=== PATIENT | female | born 1960 | race Caucasian/White ===

== ENCOUNTER 2016-09-09 16:48 | Observation (INO) | payer BC ==
[2016-09-09] MEDS ORDERED: LIBRAX PO PRN (17:20)
[2016-09-09] MEDS ORDERED: ZOFRAN INJ 4 MG VIAL 16 MG, ATIVAN INJ 2 MG VIAL 1 MG, DECADRON INJ 10 MG in NS 50 ML I... IV PRN (17:20)
[2016-09-09] MEDS ORDERED: NS 1000 ML 1,000 ML ONE (17:41)
[2016-09-09] MEDS: FLAGYL IV PREMIX 500 MG BAG 500 MG/100 ML BAG IV SCH ×2 (17:49→23:12)
[2016-09-09] MEDS: PROTONIX INJ 40 MG VIAL IVP SCH ×2 (17:49→20:21)
[2016-09-09] MEDS: NS 1000 ML 1,000 ML IV SCH (17:49)
[2016-09-09 17:53] LABS: BASOPHILS # (AUTO) 0.1 X10^3/uL (0.0-0.1); BASOPHILS % (AUTO) 1.3 % (0.2-1.0); EOSINOPHILS # (AUTO) 0.2 x10^3/uL (0.0-0.2); EOSINOPHILS % (AUTO) 2.6 % (0.9-2.9); HEMATOCRIT 41.2 % (36.0-47.0); LYMPHOCYTES # (AUTO) 3.5 X10^3/uL (1.3-2.9); LYMPHOCYTES % (AUTO) 44.1 % (21.0-51.0); MEAN CORPUSCULAR HEMOGLOBIN 31.1 pg (27.0-34.0); MEAN CORPUSCULAR HGB CONC 33.9 g/dL (33.0-35.0); MEAN CORPUSCULAR VOLUME 91.9 fL (80.0-100.0); MEAN PLATELET VOLUME 8.9 fL (7.4-11.0); MONOCYTES # (AUTO) 0.7 x10^3/uL (0.3-0.8); MONOCYTES % (AUTO) 9.4 % (0.0-13.0); NEUTROPHILS # (AUTO) 3.4 x10^3/uL (2.2-4.8); NEUTROPHILS % (AUTO) 42.6 % (42.0-75.0); PLATELET COUNT 299 X10^3/uL (150.0-450.0); RED BLOOD COUNT 4.48 X10^6/uL (3.5-5.4); RED CELL DISTRIBUTION WIDTH 13.4 % (11.6-16.5); WHITE BLOOD COUNT 7.9 X10^3/uL (3.6-10.0)
[2016-09-09 18:05] LABS: ALANINE AMINOTRANSFERASE 40 Units/L (12-78); ALBUMIN 4.3 g/dL (3.4-5.0); ALKALINE PHOSPHATASE 88 Units/L (46-116); AMYLASE 45 Units/L (25-115); ASPARTATE AMINO TRANSFERASE 21 Units/L (15-37); BLOOD UREA NITROGEN 11 mg/dL (7-18); CALCIUM 9.4 mg/dL (8.5-10.1); CARBON DIOXIDE 30.8 mmol/L (21-32); CHLORIDE 104 mmol/L (98-107); CREATININE 0.82 mg/dL (0.55-1.02); GLUCOSE 100 mg/dL (65-99); LIPASE 127 Units/L (73-393); SODIUM 142 mmol/L (136-145); TOTAL PROTEIN 8.2 g/dL (6.4-8.2); eGFR BLACK RACES > 60 (>60); eGFR NON BLACK RACES > 60 (>60)
[2016-09-09 18:20] LABS: BILIRUBIN,URINE NEGATIVE (NEGATIVE); BLOOD/HEMOGLOBIN,URINE NEGATIVE (NEGATIVE); GLUCOSE, URINE NEGATIVE (NEGATIVE); KETONES,URINE NEGATIVE (NEGATIVE); LEUKOCYTE ESTERASE ,URINE NEGATIVE (NEGATIVE); NITRITES,URINE NEGATIVE (NEGATIVE); PROTEIN,URINE NEGATIVE (NEGATIVE); UROBILINOGEN,URINE NORMAL (NORMAL)
[2016-09-09 18:23] VITALS: BMI 30.2
[2016-09-09 18:26] LABS: APPEARANCE,URINE CLEAR (CLEAR); COLOR,URINE PALE YELLOW (YELLOW); RBC,URINE NONE SEEN /HPF (NEGATIVE)
[2016-09-09 18:27] LABS: AMORPHOUS SEDIMENT,UR TRACE /HPF (NEGATIVE); BACTERIA,URINE NEGATIVE /HPF (NEGATIVE); RENAL EPITHELIAL CELLS,URINE FEW /HPF (NEGATIVE); SQUAMOUS EPITHELIAL CELL,UR FEW /HPF (NEGATIVE)
[2016-09-09] MEDS ORDERED: NORCO 10/325 TAB PO PRN (18:27)
--- NOTE | 2016-09-09 18:31 | DR.H&P ---
H&P - History & Physical for Day of: H&P Date: 09/09/16 - Chief Complaint Chief Complaint: abdominal pain, diarrhea, headache, decreased urine output - Allergies Allergies/Adverse Reactions: Allergies Allergy/AdvReac Type Severity Reaction Status Date / Time No Known Drug Allergy Allergy Verified 06/01/15 19:38 - History of Present Illness History of Present Illness: patient is a 56-year-old white female who was a direct admit from Dr. Carpenter's office after presenting with complaints of little urine output and dehydration following a C. difficile colitis infection. Patient continues on oral antibiotics for C. difficile infection. Patient was recently treated at [facility] in [place] for acute renal insufficiency, severe dehydration, and C. difficile colitis. On exam patient has dry mucous membranes , epigastric tenderness, hyperactive bowel sounds. Patient states she's been able to reassess for the last several days, has a history of migraines with a severe headache in office as well as elevated blood pressure . Plan to admit for IV hydration and further evaluation of decreased urinary output, evaluation of abdominal pain and diarrhea. - Past Medical History Past Medical History: Arthritis, Migraines Additional Medical History: cervical spine ddd - Past Surgical History Surgical History: Appendectomy, Cholecystectomy, Hysterectomy, Tonsillectomy - Family History Family Medical History: Diabetes Mellitus, [place], Heart Failure, Hypertension - Social History Does patient currently use any type of tobacco product: No Have you used tobacco products in the last 12 months: No Type of Tobacco Use: None Does any household member use tobacco: No Alcohol Use: None Drug Use: None - Review of Systems Constitutional: Chills, Sweats, Weakness Eyes: No Symptoms Reported ENT: No Symptoms Reported Respiratory: No Symptoms Reported Cardiovascular: No Symptoms Reported Gastrointestinal: Nausea, Abdominal Pain, Diarrhea Genitourinary: Retention Musculoskeletal: Back Pain, Neck Pain Skin: No Symptoms Reported Neurological: Weakness - Physical Exam Vital Signs: Blood Pressure 149/82 Oriented: Normal Eyes: Normal Ear: Normal Nose: Normal Throat: Normal Respiratory: Clear Throughout Cardiovascular: Normal : Other (more urinary output) Auscultation: Bowel Sounds: Increased Tenderness: RUQ, Epigastric Skin: Decreased Turgur Musculoskeletal: Hip, Back:Thoracic, Back:Lumbar, Tender (c spine) Psychiatric: Anxiety Speech Pattern: Clear, Appropriate - Assessment/Plan (1) C. difficile colitis Status: Acute Plan: ADMIT, IV HYDRATION, STOOL STUDIES. CONTINUE IV FLAGYL. CBC CMP ON ADMISSION. UA, BC, ABD SERIES (2) Dehydration Status: Acute (3) Urinary retention Status: Acute (4) Abdominal pain Qualifiers: Abdominal location: A Status: Acute Plan: RECENT EGD, PPI AND ANIT EMETICS PRN (5) Migraine Qualifiers: Migraine type: M Status migrainosus presence: S Intractability: I Status: Acute Plan: HYDRATE, PAIN CONTROL, O2. HTN TREATMENT (6) Elevated BP without diagnosis of hypertension Status: Acute Plan: CATAPRES PO PRN, BP MONITORING
[2016-09-09] MEDS: PHENERGAN INJ 25 MG IV PRN (20:26)
[2016-09-09] MEDS: MORPHINE SULFATE INJ 2 MG IVP PRN (20:26)
[2016-09-09] MEDS ORDERED: COLACE CAP 100 MG PO SCH (21:00)
[2016-09-10] MEDS: NS 1000 ML 1,000 ML IV SCH ×2 (03:54→10:38)
[2016-09-10] MEDS: FLAGYL IV PREMIX 500 MG BAG 500 MG/100 ML BAG IV SCH ×2 (03:54→09:39)
[2016-09-10 05:42] LABS: BASOPHILS # (AUTO) 0.1 X10^3/uL (0.0-0.1); BASOPHILS % (AUTO) 1.3 % (0.2-1.0); EOSINOPHILS # (AUTO) 0.2 x10^3/uL (0.0-0.2); EOSINOPHILS % (AUTO) 3.1 % (0.9-2.9); HEMATOCRIT 35.7 % (36.0-47.0); HEMOGLOBIN 12.3 g/dL (12.0-16.0); LYMPHOCYTES # (AUTO) 3.6 X10^3/uL (1.3-2.9); LYMPHOCYTES % (AUTO) 53.2 % (21.0-51.0); MEAN CORPUSCULAR HEMOGLOBIN 31.8 pg (27.0-34.0); MEAN CORPUSCULAR HGB CONC 34.4 g/dL (33.0-35.0); MEAN CORPUSCULAR VOLUME 92.4 fL (80.0-100.0); MEAN PLATELET VOLUME 9.5 fL (7.4-11.0); MONOCYTES # (AUTO) 0.6 x10^3/uL (0.3-0.8); NEUTROPHILS # (AUTO) 2.3 x10^3/uL (2.2-4.8); NEUTROPHILS % (AUTO) 33.4 % (42.0-75.0); PLATELET COUNT 249 X10^3/uL (150.0-450.0); RED BLOOD COUNT 3.86 X10^6/uL (3.5-5.4); RED CELL DISTRIBUTION WIDTH 13.6 % (11.6-16.5); WHITE BLOOD COUNT 6.8 X10^3/uL (3.6-10.0)
[2016-09-10 06:00] LABS: BLOOD UREA NITROGEN 9 mg/dL (7-18); CALCIUM 8.5 mg/dL (8.5-10.1); CARBON DIOXIDE 27.3 mmol/L (21-32); CHLORIDE 109 mmol/L (98-107); CREATININE 0.77 mg/dL (0.55-1.02); GLUCOSE 103 mg/dL (65-99); SODIUM 145 mmol/L (136-145); eGFR BLACK RACES > 60 (>60); eGFR NON BLACK RACES > 60 (>60)
[2016-09-10] MEDS: PROTONIX INJ 40 MG VIAL IVP SCH (09:39)
[2016-09-10] MEDS: PHENERGAN INJ 25 MG IV PRN (09:48)
[2016-09-10] MEDS: MORPHINE SULFATE INJ 2 MG IVP PRN (09:49)
[2016-09-10] MEDS ORDERED: NORCO 10/325 TAB PO PRN (10:24)
[2016-09-10] MEDS ORDERED: LOMOTIL PO PRN (10:24)
[2016-09-10] MEDS ORDERED: FLONASE NASAL SPRAY ENOSTRIL SCH (11:00)
[2016-09-10] MEDS ORDERED: ESTRACE PO SCH (11:00)
[2016-09-10 12:21] VITALS: BP 106/71
--- NOTE | 2016-09-10 14:16 | PCM.PROG ---
Progress Note - Progress Note for Day of Date: 09/10/16 - Past Medical Family Social History Allergies: Allergies No Known Drug Allergy Allergy (Verified 06/01/15 19:38) - Vital Signs and I&O's Vital Signs: Temperature 98.2 F Pulse Rate [Right Brachial] 76 Respiratory Rate 18 Blood Pressure [Right Arm] 106/71 Blood Pressure 149/82 O2 Sat by Pulse Oximetry 95 Intake and Output: Intake & Output 09/08/16 09/09/16 09/10/16 09/11/16 11:59 11:59 11:59 11:59 Intake Total 1820 Balance 1820 - Physical Exam Oriented: Normal Eyes: Normal Ear: Normal Nose: Normal Throat: Normal Cardiovascular: Normal : Other (more urinary output) Auscultation: Bowel Sounds: Increased Tenderness: RUQ, Epigastric Skin: Decreased Turgur Musculoskeletal: Hip, Back:Thoracic, Back:Lumbar, Tender (c spine) Psychiatric: Anxiety Speech Pattern: Clear, Appropriate - Laboratory and Diagnostics Result Diagrams: 09/10/16 03:30 09/10/16 03:30 Labs: Laboratory WBC 6.8 X10^3/uL (3.6-10.0) 09/10/16 03:30 RBC 3.86 X10^6/uL (3.5-5.4) 09/10/16 03:30 Hgb 12.3 g/dL (12.0-16.0) 09/10/16 03:30 Hct 35.7 % (36.0-47.0) L 09/10/16 03:30 MCV 92.4 fL (80.0-100.0) 09/10/16 03:30 MCH 31.8 pg (27.0-34.0) 09/10/16 03:30 MCHC 34.4 g/dL (33.0-35.0) 09/10/16 03:30 RDW 13.6 % (11.6-16.5) 09/10/16 03:30 Plt Count 249 X10^3/uL (150.0-450.0) 09/10/16 03:30 MPV 9.5 fL (7.4-11.0) 09/10/16 03:30 Neut % 33.4 % (42.0-75.0) L 09/10/16 03:30 Lymph % 53.2 % (21.0-51.0) H 09/10/16 03:30 [place] % 9.0 % (0.0-13.0) 09/10/16 03:30 Eos % 3.1 % (0.9-2.9) H 09/10/16 03:30 Baso % 1.3 % (0.2-1.0) H 09/10/16 03:30 Neut # 2.3 x10^3/uL (2.2-4.8) 09/10/16 03:30 Lymph # 3.6 X10^3/uL (1.3-2.9) H 09/10/16 03:30 [place] # 0.6 x10^3/uL (0.3-0.8) 09/10/16 03:30 Eos # 0.2 x10^3/uL (0.0-0.2) 09/10/16 03:30 Baso # 0.1 X10^3/uL (0.0-0.1) 09/10/16 03:30 Absolute Nucleated RBC 0.2 /100WBC 09/10/16 03:30 Sodium 145 mmol/L (136-145) 09/10/16 03:30 Corrected Sodium TNP 09/10/16 03:30 Potassium 4.0 mmol/L (3.5-5.1) 09/10/16 03:30 Chloride 109 mmol/L (98-107) H 09/10/16 03:30 Carbon Dioxide 27.3 mmol/L (21-32) 09/10/16 03:30 BUN 9 mg/dL (7-18) 09/10/16 03:30 Creatinine 0.77 mg/dL (0.55-1.02) 09/10/16 03:30 Est GFR (MDRD) Af Amer > 60 (>60) 09/10/16 03:30 Est GFR (MDRD) Non-Af > 60 (>60) 09/10/16 03:30 Glucose 103 mg/dL (65-99) H 09/10/16 03:30 Calcium 8.5 mg/dL (8.5-10.1) 09/10/16 03:30 Corrected Calcium TNP 09/09/16 17:40 Total Bilirubin 0.30 mg/dL (0.2-1.0) 09/09/16 17:40 AST 21 Units/L (15-37) 09/09/16 17:40 ALT 40 Units/L (12-78) 09/09/16 17:40 Alkaline Phosphatase 88 Units/L (46-116) 09/09/16 17:40 Total Protein 8.2 g/dL (6.4-8.2) 09/09/16 17:40 Albumin 4.3 g/dL (3.4-5.0) 09/09/16 17:40 Globulin 3.9 g/dL (2.5-4.5) 09/09/16 17:40 Albumin/Globulin Ratio 1.1 Ratio (1.1-2.1) 09/09/16 17:40 Amylase 45 Units/L (25-115) 09/09/16 17:40 Lipase 127 Units/L (73-393) 09/09/16 17:40 Specimen Type Clean catch urine 09/09/16 18:15 Urine Color Pale yellow (YELLOW) 09/09/16 18:15 Urine Appearance Clear (CLEAR) 09/09/16 18:15 Urine pH 7.0 (5.0 - 8.0) 09/09/16 18:15 Ur Specific [place] 1.005 (1.000-1.030) 09/09/16 18:15 Urine Protein Negative (NEGATIVE) 09/09/16 18:15 Urine Glucose (UA) Negative (NEGATIVE) 09/09/16 18:15 Urine Ketones Negative (NEGATIVE) 09/09/16 18:15 Urine Occult Blood Negative (NEGATIVE) 09/09/16 18:15 Urine Nitrite Negative (NEGATIVE) 09/09/16 18:15 Urine Bilirubin Negative (NEGATIVE) 09/09/16 18:15 Urine Urobilinogen Normal (NORMAL) 09/09/16 18:15 Ur Leukocyte Esterase Negative (NEGATIVE) 09/09/16 18:15 Urine RBC None seen /HPF (NEGATIVE) 09/09/16 18:15 Urine WBC 0-1 /HPF (NEGATIVE) 09/09/16 18:15 Ur Squamous Epith Cells Few /HPF (NEGATIVE) 09/09/16 18:15 Ur Renal Epithelial Cell Few /HPF (NEGATIVE) 09/09/16 18:15 Amorphous Sediment Trace /HPF (NEGATIVE) 09/09/16 18:15 Urine Bacteria Negative /HPF (NEGATIVE) 09/09/16 18:15 Ur Culture Indicated? No/not indicated 09/09/16 18:15 - Plan (1) C. difficile colitis Status: Acute Plan: ADMIT, IV HYDRATION, STOOL STUDIES. CONTINUE IV FLAGYL. CBC CMP ON ADMISSION. UA, BC, ABD SERIES (2) Dehydration Status: Acute (3) Urinary retention Status: Acute (4) Abdominal pain Status: Acute Qualifiers: Abdominal location: A Plan: RECENT EGD, PPI AND ANIT EMETICS PRN (5) Migraine Status: Acute Qualifiers: Migraine type: M Status migrainosus presence: S Intractability: I Plan: HYDRATE, PAIN CONTROL, O2. HTN TREATMENT (6) Elevated BP without diagnosis of hypertension Status: Acute Plan: CATAPRES PO PRN, BP MONITORING
--- NOTE | 2016-09-10 14:18 | PCM.DCPLAN ---
Discharge Summary - Admission Date Date of Admission: 09/09/16 - Discharge Date Discharge Date: 09/10/16 - Admission Diagnoses (1) C. difficile colitis Status: Acute (2) Dehydration Status: Acute (3) Urinary retention Status: Acute (4) Abdominal pain Status: Acute (5) Migraine Status: Acute (6) Elevated BP without diagnosis of hypertension Status: Acute - Discharge Diagnoses Discharge Diagnosis: SAME ADMISSION - Discharge Medications Discharge Medications: Diphenoxylate/Atropine [LOMOTIL TAB *] 1 tab PO Q8H PRN 09/09/16 [History] Estradiol 1 tab PO DAILY 09/09/16 [History] Fluticasone Nasal [place] [FLONASE NASAL SPRAY *] 1 spray ENOSTRIL BID 09/09/16 [ History] Hydrocodone-Acet 10/325 mg [NORCO 10 MG/325 MG *] 1 tab PO Q6H PRN 09/09/16 [ History] Metronidazole [FLAGYL 500 MG *] 1 tab PO Q8H 09/09/16 [History] Promethazine HCl 1 tab PO Q4-6H PRN 09/09/16 [History] - Hospital Course Vital Signs: Temperature 98.2 F Pulse Rate [Right Brachial] 76 Respiratory Rate 18 Blood Pressure [Right Arm] 106/71 Blood Pressure 149/82 O2 Sat by Pulse Oximetry 95 Latest Lab Results: Laboratory Last Values WBC 6.8 X10^3/uL (3.6-10.0) 09/10/16 03:30 RBC 3.86 X10^6/uL (3.5-5.4) 09/10/16 03:30 Hgb 12.3 g/dL (12.0-16.0) 09/10/16 03:30 Hct 35.7 % (36.0-47.0) L 09/10/16 03:30 MCV 92.4 fL (80.0-100.0) 09/10/16 03:30 MCH 31.8 pg (27.0-34.0) 09/10/16 03:30 MCHC 34.4 g/dL (33.0-35.0) 09/10/16 03:30 RDW 13.6 % (11.6-16.5) 09/10/16 03:30 Plt Count 249 X10^3/uL (150.0-450.0) 09/10/16 03:30 MPV 9.5 fL (7.4-11.0) 09/10/16 03:30 Neut % 33.4 % (42.0-75.0) L 09/10/16 03:30 Lymph % 53.2 % (21.0-51.0) H 09/10/16 03:30 [place] % 9.0 % (0.0-13.0) 09/10/16 03:30 Eos % 3.1 % (0.9-2.9) H 09/10/16 03:30 Baso % 1.3 % (0.2-1.0) H 09/10/16 03:30 Neut # 2.3 x10^3/uL (2.2-4.8) 09/10/16 03:30 Lymph # 3.6 X10^3/uL (1.3-2.9) H 09/10/16 03:30 [place] # 0.6 x10^3/uL (0.3-0.8) 09/10/16 03:30 Eos # 0.2 x10^3/uL (0.0-0.2) 09/10/16 03:30 Baso # 0.1 X10^3/uL (0.0-0.1) 09/10/16 03:30 Absolute Nucleated RBC 0.2 /100WBC 09/10/16 03:30 Sodium 145 mmol/L (136-145) 09/10/16 03:30 Corrected Sodium TNP 09/10/16 03:30 Potassium 4.0 mmol/L (3.5-5.1) 09/10/16 03:30 Chloride 109 mmol/L (98-107) H 09/10/16 03:30 Carbon Dioxide 27.3 mmol/L (21-32) 09/10/16 03:30 BUN 9 mg/dL (7-18) 09/10/16 03:30 Creatinine 0.77 mg/dL (0.55-1.02) 09/10/16 03:30 Est GFR (MDRD) Af Amer > 60 (>60) 09/10/16 03:30 Est GFR (MDRD) Non-Af > 60 (>60) 09/10/16 03:30 Glucose 103 mg/dL (65-99) H 09/10/16 03:30 Calcium 8.5 mg/dL (8.5-10.1) 09/10/16 03:30 Corrected Calcium TNP 09/09/16 17:40 Total Bilirubin 0.30 mg/dL (0.2-1.0) 09/09/16 17:40 AST 21 Units/L (15-37) 09/09/16 17:40 ALT 40 Units/L (12-78) 09/09/16 17:40 Alkaline Phosphatase 88 Units/L (46-116) 09/09/16 17:40 Total Protein 8.2 g/dL (6.4-8.2) 09/09/16 17:40 Albumin 4.3 g/dL (3.4-5.0) 09/09/16 17:40 Globulin 3.9 g/dL (2.5-4.5) 09/09/16 17:40 Albumin/Globulin Ratio 1.1 Ratio (1.1-2.1) 09/09/16 17:40 Amylase 45 Units/L (25-115) 09/09/16 17:40 Lipase 127 Units/L (73-393) 09/09/16 17:40 Specimen Type Clean catch urine 09/09/16 18:15 Urine Color Pale yellow (YELLOW) 09/09/16 18:15 Urine Appearance Clear (CLEAR) 09/09/16 18:15 Urine pH 7.0 (5.0 - 8.0) 09/09/16 18:15 Ur Specific [place] 1.005 (1.000-1.030) 09/09/16 18:15 Urine Protein Negative (NEGATIVE) 09/09/16 18:15 Urine Glucose (UA) Negative (NEGATIVE) 09/09/16 18:15 Urine Ketones Negative (NEGATIVE) 09/09/16 18:15 Urine Occult Blood Negative (NEGATIVE) 09/09/16 18:15 Urine Nitrite Negative (NEGATIVE) 09/09/16 18:15 Urine Bilirubin Negative (NEGATIVE) 09/09/16 18:15 Urine Urobilinogen Normal (NORMAL) 09/09/16 18:15 Ur Leukocyte Esterase Negative (NEGATIVE) 09/09/16 18:15 Urine RBC None seen /HPF (NEGATIVE) 09/09/16 18:15 Urine WBC 0-1 /HPF (NEGATIVE) 09/09/16 18:15 Ur Squamous Epith Cells Few /HPF (NEGATIVE) 09/09/16 18:15 Ur Renal Epithelial Cell Few /HPF (NEGATIVE) 09/09/16 18:15 Amorphous Sediment Trace /HPF (NEGATIVE) 09/09/16 18:15 Urine Bacteria Negative /HPF (NEGATIVE) 09/09/16 18:15 Ur Culture Indicated? No/not indicated 09/09/16 18:15 Hospital Course: PATIENT IS A 56-YEAR-OLD WHITE FEMALE WHO WAS A DIRECT ADMIT FROM dR. Sharpe' S OFFICE FOR TREATMENT AND EVALUATION OF DEHYDRATION, c. DIFFICILE COLITIS AND INTRACTABLE MIGRAINE WITH ELEVATED BLOOD PRESSURE. pATIENT HAD cbc cmp ON ADMISSION. pATIENT WAS CONTINUED ON iv fLAGYL. sHE HAD PREVIOUSLY BEEN ON BY MOUTH fLAGYL AFTER DIAGNOSIS OF c. DIFFICILE INFECTION. pATIENT RECEIVED iv PAIN MEDICATION WELL ANTIEMETICS. pATIENT'S cbc AND CHEMISTRY WERE STABLE. tHIS MORNING PATIENT DENIED ANY DIARRHEA AND IMPROVING ABDOMINAL PAIN. pATIENT REPORTED RELIEF OF HEADACHE. wE DISCUSSED mri OF BRAIN AND c-SPINE DUE TO CHRONIC MIGRAINES. pATIENT HAS A HISTORY OF DAILY MIGRAINES AND HAS SEEN NEUROLOGISTS IN THE PAST WITH EXTENSIVE NEUROLOGICAL WORKUP. pATIENT HAS NOT HAD AN mri IN SEVERAL YEARS. pLAN ATTEMPT TO OBTAIN AN mri WHILE SHE IS HERE. pATIENT ALSO HAS CERVICAL DEGENERATIVE DISC DISEASE. uNABLE TO GET AN mri AN INPATIENT WILL FOLLOW-UP ON OUTPATIENT BASIS. pATIENT INSTRUCTED TO CONTINUE iv HYDRATION AND FOLLOW A BLAND DIET. pATIENT TO RESUME HOME MEDICATIONS INCLUDING fLAGYL. pATIENT VERBALIZED UNDERSTANDING AND WAS DISCHARGED HOME BY PRIVATE VEHICLE. pATIENT'S CONDITION WAS IMPROVED AND STABLE ON DISCHARGE - Discharge Plan Disposition: 01 HOME, SELF-CARE Condition: Stable - Follow ups/Referrals Follow ups/Referrals: MIKY FERRERA [Primary Care Provider] - 1 WEEK - Instructions Instructions: Contact Precautions, Migraine Headache, [id number], Acute Urinary Retention, Female, Clostridium Difficile Infection, [id number], Dehydration, Adult, [id number], Abdominal Pain, Adult, [id number], Recurrent Migraine Headache, [id number] Forms: Patient Portal
== END 2016-09-10 13:55 | disposition home or self-care (01) ==
LOC: MED/SURG 16:48
PROVIDERS: ADMIT Internal Medicine; ATTEND Internal Medicine
DX: A04.7 Enterocolitis due to Clostridium difficile (principal); E86.0 Dehydration; R10.84 Generalized abdominal pain; R19.7 Diarrhea, unspecified; R51 Headache; R33.8 Other retention of urine; R03.0 Elevated blood-pressure reading, without diagnosis of hypertension; G43.809 Other migraine, not intractable, without status migrainosus
CPT/HCPCS: 36415; 80048; 80053; 81001; 82150; 83690; 85025; 87045; 87205; 87427; 87493; 87899; 99217; A4222; C9113; S0030; G0378; J2270; J2550

== ENCOUNTER 2019-04-09 17:05 | Observation (INO) ==
--- NOTE | 2019-04-09 17:28 | DR.H&P ---
H&P - History & Physical for Day of: H&P Date: 04/09/19 - Chief Complaint Chief Complaint: RIGHT MID TO UPPER ABDOMINAL PAIN, RIGHT FLANK PAIN, N/V. FEVER - History of Present Illness History of Present Illness: 58 WF DIRECT ADMIT FROM DR DUONG OFFICE AFTER PRESENTING FOR ER FOLLOW UP WITH CO INTRACTABLE RIGHT UPPER ABDOMINAL PAIN, RIGHT MID AND RIGHT FLANK PAIN WITH N/V AND FEVER X 2 DAYS. PT WAS SEEN IN ER IN [place] LAST NIGHT AND HAD CT SCAN ABD W/O CONTRAST AND WAS DX WITH UTI AND GIVEN PO KEFLEX AND "ANTIBIOTICS AND DEMEROL IN THE IV" WITHOUT IMPROVEMENT. PT HAS PMH OF GASTRITIS AND COLITIS. PT HAS C DIFF INFECTION LAST YEAR WITH EGD AND COLONOSCOPY AT THAT TIME. PT DENIES ANY DIARRHEA OR BLOOD IN STOOL. PT REPORTS SHE HAD HER GALLBLADDER REMOVED. - Past Medical History Past Medical History: Arthritis, Migraines, Headaches Additional Medical History: cervical spine ddd - Past Surgical History Surgical History: Appendectomy, Cholecystectomy, Hysterectomy, Tonsillectomy - Family History Family Medical History: Diabetes Mellitus, [place], Heart Failure, Hypertension - Social History Does patient currently use any type of tobacco product: No Have you used tobacco products in the last 12 months: No Type of Tobacco Use: None Does any household member use tobacco: No Alcohol Use: None Drug Use: None Risks, benefits, and alternatives of opioids discussed: Yes Prescription drug monitoring program results: PDMP reviewed and no concerns identified - Medications Home Medications: MS No Known Drug Allergy [No Known Drug Allergy] Allergy (Verified 06/01/15 19:38) - Review of Systems Constitutional: Fever, Weakness, Malaise Eyes: No Symptoms Reported ENT: No Symptoms Reported Respiratory: No Symptoms Reported Cardiovascular: No Symptoms Reported Gastrointestinal: Nausea, Vomiting, Abdominal Pain Genitourinary: denies: Dysuria, Hematuria Musculoskeletal: Back Pain (RIGHT FLANK) Skin: No Symptoms Reported Neurological: No Symptoms Reported - Physical Exam Vital Signs: Blood Pressure [Right Arm] 106/71 Oriented: Normal Eyes: Normal Ear: Normal Nose: Normal Throat: Normal Respiratory: Clear Throughout Cardiovascular: Normal : Normal Auscultation: Bowel Sounds: Normal Palpation: Normal Tenderness: RUQ, RLQ, Moderate Skin: Normal Musculoskeletal: Back:Thoracic, Back:Lumbar Psychiatric: Anxiety Affect: Anxious Speech Pattern: Clear, Appropriate - Assessment/Plan (1) Acute gastritis Status: Acute Plan: ADMIT, NPO. CT ABD PELVIS WITH CONTRAST. IV HYDRATION, IV PAIN AND NAUSEA CONTROL. PPI THERAPY, GI COCKTAIL, STOOL STUDIES. VERIFY HOME MEDICATION (2) Right sided abdominal pain Status: Acute (3) Fever Status: Acute (4) UTI (urinary tract infection) Status: Acute - Allergies Allergies/Adverse Reactions: Allergies Allergy/AdvReac Type Severity Reaction Status Date / Time MS No Known Drug Allergy Allergy Verified 06/01/15 19:38 [No Known Drug Allergy]
[2019-04-09] MEDS ORDERED: CIPRO IV 400 MG PREMIX* 400 MG/200 ML IV.SOLN. IV SCH (18:00)
[2019-04-09 18:19] LABS: BILIRUBIN,URINE NEGATIVE (NEGATIVE); BLOOD/HEMOGLOBIN,URINE 1+ (NEGATIVE); GLUCOSE, URINE NEGATIVE (NEGATIVE); KETONES,URINE NEGATIVE (NEGATIVE); LEUKOCYTE ESTERASE ,URINE 2+ (NEGATIVE); NITRITES,URINE NEGATIVE (NEGATIVE); PROTEIN,URINE 1+ (NEGATIVE); UROBILINOGEN,URINE NORMAL (NORMAL)
[2019-04-09 18:26] LABS: APPEARANCE,URINE SLIGHTLY HAZY (CLEAR); COLOR,URINE YELLOW (YELLOW)
[2019-04-09 18:27] LABS: BACTERIA,URINE NEGATIVE /HPF (NEGATIVE); RBC,URINE 0-2 /HPF (0-3); SQUAMOUS EPITHELIAL CELL,UR MANY /HPF (NEGATIVE)
[2019-04-09 18:35] LABS: BASOPHILS # (AUTO) 0.1 X10^3/uL (0.0-0.1); BASOPHILS % (AUTO) 0.7 % (0.2-1.0); EOSINOPHILS # (AUTO) 0.1 x10^3/uL (0.0-0.2); EOSINOPHILS % (AUTO) 0.8 % (0.9-2.9); HEMATOCRIT 41.8 % (36.0-47.0); HEMOGLOBIN 14.2 g/dL (12.0-16.0); LYMPHOCYTES # (AUTO) 2.4 X10^3/uL (1.3-2.9); LYMPHOCYTES % (AUTO) 34.1 % (21.0-51.0); MEAN CORPUSCULAR HEMOGLOBIN 30.1 pg (27.0-34.0); MEAN CORPUSCULAR VOLUME 88.4 fL (80.0-100.0); MEAN PLATELET VOLUME 8.3 fL (7.4-11.0); MONOCYTES # (AUTO) 0.5 x10^3/uL (0.3-0.8); MONOCYTES % (AUTO) 7.5 % (0.0-13.0); NEUTROPHILS # (AUTO) 4.1 x10^3/uL (2.2-4.8); NEUTROPHILS % (AUTO) 56.9 % (42.0-75.0); PLATELET COUNT 239 X10^3/uL (150.0-450.0); RED BLOOD COUNT 4.72 X10^6/uL (3.5-5.4); RED CELL DISTRIBUTION WIDTH 13.4 % (11.6-16.5); WHITE BLOOD COUNT 7.1 X10^3/uL (3.6-10.0)
[2019-04-09 18:39] VITALS: BMI 31.6
[2019-04-09] MEDS: LEVSIN/MAALOX/LIDOC VISC PO SCH ×2 (18:46→21:57)
[2019-04-09] MEDS: NS 1000 ML 1,000 ML IV SCH (18:46)
[2019-04-09] MEDS: BENTYL CAP 10 MG PO SCH ×2 (18:46→22:00)
[2019-04-09] MEDS: PROTONIX INJ 40 MG VIAL IVP SCH ×2 (18:46→22:00)
[2019-04-09] MEDS: NORCO 7.5/325 MG TAB PO PRN (18:50)
[2019-04-09 19:04] LABS: ALANINE AMINOTRANSFERASE 42 Units/L (12-78); ALBUMIN 3.6 g/dL (3.4-5.0); ALKALINE PHOSPHATASE 106 Units/L (46-116); AMYLASE 29 Units/L (25-115); ASPARTATE AMINO TRANSFERASE 20 Units/L (15-37); BLOOD UREA NITROGEN 15 mg/dL (7-18); CALCIUM 8.9 mg/dL (8.5-10.1); CARBON DIOXIDE 28.5 mmol/L (21-32); CHLORIDE 102 mmol/L (98-107); COR NA(FOR HYPERGLY) 141 mmol/L (136-145); CREATININE 0.98 mg/dL (0.55-1.02); LIPASE 80 Units/L (73-393); SODIUM 141 mmol/L (136-145); TOTAL PROTEIN 7.6 g/dL (6.4-8.2); eGFR NON BLACK RACES > 60 (>60)
[2019-04-09] MEDS: COLACE CAP 100 MG PO SCH (22:00)
[2019-04-09] MEDS: CIPRO IV 400 MG PREMIX* 400 MG/200 ML IV.SOLN. IV SCH (22:00)
[2019-04-10] MEDS: TORADOL 15 MG VIAL IVP PRN ×2 (00:43→08:42)
[2019-04-10] MEDS: LEVSIN/MAALOX/LIDOC VISC PO SCH ×6 (01:48→22:06)
[2019-04-10] MEDS: NORCO 7.5/325 MG TAB PO PRN ×2 (01:57→13:09)
[2019-04-10] MEDS: CIPRO IV 400 MG PREMIX* 400 MG/200 ML IV.SOLN. IV SCH ×2 (08:36→21:15)
[2019-04-10] MEDS: PROTONIX INJ 40 MG VIAL IVP SCH ×2 (08:37→21:20)
[2019-04-10] MEDS: BENTYL CAP 10 MG PO SCH ×4 (08:44→21:18)
[2019-04-10] MEDS: NS 1000 ML 1,000 ML IV SCH ×3 (08:44→22:07)
[2019-04-10] MEDS ORDERED: DEMEROL INJ ONE (09:32)
--- NOTE | 2019-04-10 14:17 | CT ---
HISTORYRIGHT SIDE ABD PAIN, HX COLITISSTUDYABDOMEN/PELVIS WITH CONCOMPARISONNoneTECHNIQUEMultiple axial images of the abdomen and pelvis were obtained from the lung bases to the pubic symphysis after the administration of IV contrast. Dose reduction techniques including Automated Exposure Control (AEC) and adjustment of mA and kV were utilized.FINDINGSThe visualized portions of the lung bases are unremarkable . The liver, spleen, pancreas, kidneys, and adrenal glands are unremarkable in their CT appearance. Clips are noted in the gallbladder fossa consistent with prior cholecystectomy . No significant mesenteric lymphadenopathy or stranding can be observed. No free fluid or free air is seen within the abdomen. No bowel wall thickening or bowel dilatation is present. The cecum does demonstrates some degree of circumferential wall thickening. Filling defect within the cecum is noted may be on the basis of underlying fecal material. Incomplete distension of the cecum is noted and may account for the nonspecific bowel prominence, The findings would be consistent with patient's history of colitis. The urinary bladder is grossly unremarkable. The bony structures are grossly intact.IMPRESSIONIncomplete distension of the cecum is observed with prominence in circumferential colonic wall thickening likely present. No significant pericolonic stranding can be identified. Filling defect within the cecum is observed with associated oral contrast and likely the basis of retained fecal material. Correlation with recent colonoscopy would be of benefit. Otherwise, no acute abnormality of the abdomen or pelvis can be identified.Electronically signed by: NEHA MORGAN (Apr 10, 2019 14:16:19)
[2019-04-10] MEDS: DEMEROL INJ IVP PRN ×2 (16:02→22:41)
[2019-04-10] MEDS ORDERED: MILK OF MAGNESIA PO PRN (16:06)
[2019-04-10] MEDS: COLACE CAP 100 MG PO SCH (21:18)
[2019-04-10] MEDS: ZOFRAN INJ 4 MG VIAL IVP PRN (22:41)
[2019-04-11] MEDS: TORADOL 15 MG VIAL IVP PRN (02:31)
[2019-04-11] MEDS: LEVSIN/MAALOX/LIDOC VISC PO SCH ×6 (02:36→21:24)
[2019-04-11] MEDS: NS 1000 ML 1,000 ML IV SCH ×2 (04:07→13:52)
[2019-04-11] MEDS: DEMEROL INJ IVP PRN ×4 (06:18→23:23)
[2019-04-11] MEDS: PROTONIX INJ 40 MG VIAL IVP SCH ×2 (08:15→21:24)
[2019-04-11] MEDS: BENTYL CAP 10 MG PO SCH (08:15)
[2019-04-11] MEDS: CIPRO IV 400 MG PREMIX* 400 MG/200 ML IV.SOLN. IV SCH ×2 (08:15→22:37)
[2019-04-11 14:53] LABS: BASOPHILS % (AUTO) 0.7 % (0.2-1.0); EOSINOPHILS # (AUTO) 0.2 x10^3/uL (0.0-0.2); EOSINOPHILS % (AUTO) 2.4 % (0.9-2.9); HEMATOCRIT 41.1 % (36.0-47.0); HEMOGLOBIN 13.9 g/dL (12.0-16.0); LYMPHOCYTES # (AUTO) 2.5 X10^3/uL (1.3-2.9); LYMPHOCYTES % (AUTO) 35.1 % (21.0-51.0); MEAN CORPUSCULAR HEMOGLOBIN 30.2 pg (27.0-34.0); MEAN CORPUSCULAR HGB CONC 33.9 g/dL (33.0-35.0); MEAN PLATELET VOLUME 7.8 fL (7.4-11.0); MONOCYTES # (AUTO) 0.5 x10^3/uL (0.3-0.8); MONOCYTES % (AUTO) 7.7 % (0.0-13.0); NEUTROPHILS # (AUTO) 3.8 x10^3/uL (2.2-4.8); NEUTROPHILS % (AUTO) 54.1 % (42.0-75.0); PLATELET COUNT 232 X10^3/uL (150.0-450.0); RED BLOOD COUNT 4.62 X10^6/uL (3.5-5.4); RED CELL DISTRIBUTION WIDTH 13.5 % (11.6-16.5)
[2019-04-11] MEDS: FLAGYL IV PREMIX 500 MG BAG 500 MG/100 ML BAG IV SCH ×3 (14:54→21:23)
[2019-04-11] MEDS: DONNATAL TAB PO SCH ×3 (14:54→21:34)
[2019-04-11] MEDS: TOPROL XL PO SCH (14:55)
[2019-04-11 14:59] LABS: ALANINE AMINOTRANSFERASE 36 Units/L (12-78); ALBUMIN 3.4 g/dL (3.4-5.0); ALKALINE PHOSPHATASE 97 Units/L (46-116); ASPARTATE AMINO TRANSFERASE 17 Units/L (15-37); BLOOD UREA NITROGEN 6 mg/dL (7-18); CALCIUM 8.4 mg/dL (8.5-10.1); CARBON DIOXIDE 28.9 mmol/L (21-32); CHLORIDE 103 mmol/L (98-107); COR NA(FOR HYPERGLY) 142 mmol/L (136-145); CREATININE 1.02 mg/dL (0.55-1.02); SODIUM 141 mmol/L (136-145); TOTAL PROTEIN 6.9 g/dL (6.4-8.2); eGFR NON BLACK RACES 59 (>60)
[2019-04-11 15:35] LABS: ERYTHROCYTE SEDIMENTATION RATE 7 MM/HOUR (0-20)
[2019-04-11] MEDS: NORCO 7.5/325 MG TAB PO PRN ×2 (16:00→21:23)
[2019-04-11] MEDS: ZOFRAN INJ 4 MG VIAL IVP PRN (21:23)
[2019-04-11] MEDS: COLACE CAP 100 MG PO SCH (21:24)
[2019-04-12] MEDS: LEVSIN/MAALOX/LIDOC VISC PO SCH ×4 (01:12→14:23)
[2019-04-12] MEDS: NS 1000 ML 1,000 ML IV SCH ×3 (01:51→12:45)
[2019-04-12] MEDS: FLAGYL IV PREMIX 500 MG BAG 500 MG/100 ML BAG IV SCH ×2 (02:07→08:33)
[2019-04-12] MEDS: DEMEROL INJ IVP PRN ×3 (05:21→15:43)
[2019-04-12] MEDS: ZOFRAN INJ 4 MG VIAL IVP PRN ×2 (05:40→12:00)
[2019-04-12] MEDS: CIPRO IV 400 MG PREMIX* 400 MG/200 ML IV.SOLN. IV SCH (08:32)
[2019-04-12] MEDS: DONNATAL TAB PO SCH ×2 (08:32→13:03)
[2019-04-12] MEDS: PROTONIX INJ 40 MG VIAL IVP SCH (08:33)
[2019-04-12] MEDS: TOPROL XL PO SCH (08:34)
[2019-04-12] MEDS ORDERED: NEURONTIN CAP 300 MG PO SCH (09:00)
[2019-04-12] MEDS ORDERED: XYLOCAINE 1 % (PLAIN) ONE (09:04)
[2019-04-12] MEDS ORDERED: DIPRIVAN VIAL ONE (09:04)
[2019-04-12] MEDS ORDERED: DEMEROL INJ IVP PRN (09:30)
[2019-04-12] MEDS ORDERED: XYLOCAINE-MPF 1% ONE (11:20)
[2019-04-12] MEDS ORDERED: DIPRIVAN VIAL 40 ML ONE (11:20)
--- NOTE | 2019-04-12 11:47 | OR.IMMED ---
Immediate Post-Op Note - Immediate Post-Op Note Pre-Op Diagnosis: PUD, Gastritis. Post-Op Diagnosis: moderate Gastritis , no bleeding or obstruction .no ulcers . Procedure: EGD with Bx. Surgeon/Hogshead Packer: Tameka Specimens Removed: DU and antrum . Drains: NONE Complications: no. Condition: Stable (same IV Protonix , advance diet .)
[2019-04-12] MEDS ORDERED: VALTREX PO ONE (13:35)
[2019-04-12 13:47] VITALS: BP 144/83
[2019-04-16] MEDS ORDERED: TUSSIONEX PENNKINETIC SUSP PO PRN (17:26)
[2019-04-16] MEDS ORDERED: ZOFRAN INJ 4 MG VIAL IVP PRN (17:26)
[2019-04-16] MEDS ORDERED: NS 1000 ML 1,000 ML IV SCH (18:00)
[2019-04-16] MEDS ORDERED: SOLU-Medrol 125 MG VIAL IVP SCH (18:00)
[2019-04-16] MEDS ORDERED: PROTONIX INJ 40 MG VIAL IVP SCH (18:00)
[2019-04-16] MEDS ORDERED: ROBITUSSIN DM PO SCH (21:00)
== END 2019-04-12 16:21 | disposition home or self-care (01) ==
LOC: MED/SURG
PROVIDERS: ADMIT Internal Medicine; ATTEND Internal Medicine
DX: R10.11 Right upper quadrant pain; N39.0 Urinary tract infection, site not specified; R11.2 Nausea with vomiting, unspecified; B96.81 Helicobacter pylori [H. pylori] as the cause of diseases classified elsewhere; R50.9 Fever, unspecified; K29.00 Acute gastritis without bleeding
CPT/HCPCS: 36415; 74177; 80053; 81001; 82150; 82270; 83630; 83690; 85025; 85652; 86140; 87045; 87338; 87427; 87449; 87493; 87899; 96360; 96361; 96374; A4222; C9113; S0030; G0378; J0744; J1885; J2175; J2405; J2704; J7030

== ENCOUNTER 2019-04-26 17:48 | Observation (INO) ==
[2019-04-26] MEDS ORDERED: ATARAX TAB 25 MG PO PRN (18:45)
--- NOTE | 2019-04-26 18:53 | DR.H&P ---
H&P - History & Physical for Day of: H&P Date: 04/26/19 - Chief Complaint Chief Complaint: SEVERE PAIN FROM SHINGLES, FRASER, [place] - History of Present Illness History of Present Illness: PT IS 58 [address] PT OF [address] AD MONTERROSO OFFICE ADMITTED WITH INTRACTABLE PAIN FROM SEVERE SHINGLES OUTBREAK. PT WAS DX WITH HERPES ZOSTER ON 04/11/2019 WITH SMALL CLUSTER TO RIGHT MID BACK AND STARTED ON VALTREX AND GABAPENTIN. RASH SPREAD FROM MIDLINE BACK TO FRONT WITH VESICULAR RASH. PT RECIEVED TYLENOL #3 AND INCREASED GABAPENTIN TO 800 TID WITHOUT IMPROVEMENT. PT WAS SEEN IN OFFICE FOR F/U, THEN ER AND URGENT CARE WITH LYRICA AND TRAMADOL PRESCRIBED WITHOUT RELIEF. PT ALSO HAD 2 TORADOL IM SHOTS DURING THE PAST 2 WEEKS. PT HAS PMH OF HTN, OA, GERD AND MIGRAINE DISORDER. PT FAMILY REPORTS SHE HAD HAD WEIGHT LOSS, ~10LBS AND CONSTANT FRASER WITH N/V RELATED TO PAIN. PT ADMITTED FOR TREATMENT OF INTRACTABLE PAIN, IV HYDRATION. - Past Medical History Past Medical History: Arthritis, Migraines, Headaches Additional Medical History: cervical spine ddd - Past Surgical History Surgical History: Appendectomy, Cholecystectomy, Hysterectomy - Family History Family Medical History: Diabetes Mellitus, [place], Heart Failure, Hypertension - Social History Does patient currently use any type of tobacco product: No Have you used tobacco products in the last 12 months: No Type of Tobacco Use: None Does any household member use tobacco: No Alcohol Use: None Drug Use: None Prescription drug monitoring program results: PDMP reviewed and no concerns identified (PT WAS SEEN IN ER AND URGENT CARE WITH RX GIVEN FOR LYRICA AND TRAMADOL) - Medications Home Medications: No Known Drug Allergies Allergy (Verified 04/09/19 18:10) - Review of Systems Constitutional: Weakness, Malaise Eyes: No Symptoms Reported ENT: No Symptoms Reported Respiratory: No Symptoms Reported Cardiovascular: No Symptoms Reported Gastrointestinal: Nausea, Vomiting, Abdominal Pain Genitourinary: No Symptoms Reported Musculoskeletal: Back Pain Skin: Rash Neurological: Other (FRASER) - Physical Exam Vital Signs: Blood Pressure [Left Arm] 145/75 Blood Pressure [Right Arm] 144/83 Blood Pressure 134/86 Oriented: Normal Eyes: Normal Ear: Normal Nose: Normal Throat: Dry Respiratory: Clear Throughout Cardiovascular: Normal : Normal Auscultation: Bowel Sounds: Normal Palpation: Normal Tenderness: RUQ Skin: Decreased [place]urg[place], Vesicular (VESICULAR RASH WITH ERYTHEMATOUS BASE DIFFUSE TO RIGHT TRUCK FROM MIDLINE ANTERIOR TO POSTERIOR) Musculoskeletal: Back:Thoracic, Back:Lumbar Psychiatric: Anxiety Mood Description: Sad, Anxious Affect: Anxious Speech Pattern: Appropriate - Assessment/Plan (1) Herpes zoster complications Status: Acute Plan: ADMIT, IV HYDRATION. ADMISSION LABS, CRP, SED RATE, CBC CMP UA, MAG. RESUME BIAXIN AND AMOXIL HOME MED FOR TREATMENT OF HPYLORI. PAIN AND NAUSEA CONTROL. RESUME VALTREX PO BID, TOPICAL PAIN CONTROL. VERIFY HOME MEDICATION, AM LABS (2) Helicobacter pylori (H. pylori) infection Status: Acute (3) GERD (gastroesophageal reflux disease) Status: Acute (4) Hypertension Status: Acute (5) Migraine Status: Acute - Allergies Allergies/Adverse Reactions: Allergies Allergy/AdvReac Type Severity Reaction Status Date / Time No Known Drug Allergies Allergy Verified 04/09/19 18:10
[2019-04-26 19:14] LABS: BASOPHILS # (AUTO) 0.1 X10^3/uL (0.0-0.1); BASOPHILS % (AUTO) 0.6 % (0.2-1.0); EOSINOPHILS # (AUTO) 0.3 x10^3/uL (0.0-0.2); EOSINOPHILS % (AUTO) 1.9 % (0.9-2.9); HEMATOCRIT 42.8 % (36.0-47.0); HEMOGLOBIN 14.3 g/dL (12.0-16.0); LYMPHOCYTES # (AUTO) 5.3 X10^3/uL (1.3-2.9); LYMPHOCYTES % (AUTO) 34.9 % (21.0-51.0); MEAN CORPUSCULAR HEMOGLOBIN 30.2 pg (27.0-34.0); MEAN CORPUSCULAR HGB CONC 33.5 g/dL (33.0-35.0); MEAN CORPUSCULAR VOLUME 90.1 fL (80.0-100.0); MEAN PLATELET VOLUME 7.7 fL (7.4-11.0); MONOCYTES # (AUTO) 1.2 x10^3/uL (0.3-0.8); NEUTROPHILS # (AUTO) 8.3 x10^3/uL (2.2-4.8); NEUTROPHILS % (AUTO) 54.6 % (42.0-75.0); PLATELET COUNT 383 X10^3/uL (150.0-450.0); RED BLOOD COUNT 4.74 X10^6/uL (3.5-5.4); WHITE BLOOD COUNT 15.2 X10^3/uL (3.6-10.0)
[2019-04-26 19:31] LABS: ALANINE AMINOTRANSFERASE 46 Units/L (12-78); ALBUMIN 3.9 g/dL (3.4-5.0); ALKALINE PHOSPHATASE 126 Units/L (46-116); ASPARTATE AMINO TRANSFERASE 17 Units/L (15-37); BLOOD UREA NITROGEN 18 mg/dL (7-18); CALCIUM 9.6 mg/dL (8.5-10.1); CHLORIDE 99 mmol/L (98-107); CREATININE 0.84 mg/dL (0.55-1.02); MAGNESIUM 2.3 mg/dL (1.7-2.9); SODIUM 137 mmol/L (136-145); TOTAL PROTEIN 7.9 g/dL (6.4-8.2); eGFR NON BLACK RACES > 60 (>60)
[2019-04-26 19:48] LABS: BAND NEUTROPHILS % 4 % (0-10); METAMYELOCYTES % 1; MYELOCYTES % 2; PROMYELOCYTES % 1
[2019-04-26 19:49] LABS: PLATELET MORPHOLOGY COMMENT NORMAL (NORMAL)
[2019-04-26] MEDS: NS 1000 ML 1,000 ML IV SCH (19:54)
[2019-04-26] MEDS: TORADOL 15 MG VIAL IVP SCH (19:55)
[2019-04-26] MEDS: NORCO 10/325 TAB PO PRN (19:56)
[2019-04-26 19:58] LABS: ERYTHROCYTE SEDIMENTATION RATE 7 MM/HOUR (0-20)
[2019-04-26] MEDS: SOLU-Medrol 125 MG VIAL IVP SCH ×2 (21:19→21:20)
[2019-04-26] MEDS: AMOXIL CAP 500 MG PO SCH (21:20)
[2019-04-26] MEDS: ELAVIL PO SCH (21:21)
[2019-04-26] MEDS: CARAFATE PO SCH (21:21)
[2019-04-26] MEDS: BIAXIN TAB 500 MG PO SCH (21:21)
[2019-04-26] MEDS: PROTONIX INJ 40 MG VIAL IVP SCH (21:22)
[2019-04-26] MEDS: MORPHINE SULFATE INJ 2 MG INJ IVP PRN (21:23)
[2019-04-26] MEDS: VALTREX PO SCH (21:37)
[2019-04-26 23:21] VITALS: BMI 30.5
[2019-04-27] MEDS: MORPHINE SULFATE INJ 2 MG INJ IVP PRN ×4 (01:30→21:30)
[2019-04-27] MEDS: LIDODERM 5% PATCH TD SCH ×2 (01:50→08:30)
[2019-04-27] MEDS: NORCO 10/325 TAB PO PRN ×2 (02:00→14:01)
[2019-04-27] MEDS: TORADOL 15 MG VIAL IVP SCH ×2 (03:45→11:12)
[2019-04-27 05:35] LABS: BASOPHILS # (AUTO) 0.1 X10^3/uL (0.0-0.1); BASOPHILS % (AUTO) 0.4 % (0.2-1.0); EOSINOPHILS % (AUTO) 0.3 % (0.9-2.9); HEMATOCRIT 41.1 % (36.0-47.0); HEMOGLOBIN 13.9 g/dL (12.0-16.0); LYMPHOCYTES # (AUTO) 2.1 X10^3/uL (1.3-2.9); LYMPHOCYTES % (AUTO) 15.6 % (21.0-51.0); MEAN CORPUSCULAR HEMOGLOBIN 30.4 pg (27.0-34.0); MEAN CORPUSCULAR HGB CONC 33.7 g/dL (33.0-35.0); MEAN CORPUSCULAR VOLUME 90.2 fL (80.0-100.0); MEAN PLATELET VOLUME 8.7 fL (7.4-11.0); MONOCYTES # (AUTO) 0.3 x10^3/uL (0.3-0.8); NEUTROPHILS # (AUTO) 11.2 x10^3/uL (2.2-4.8); NEUTROPHILS % (AUTO) 81.7 % (42.0-75.0); PLATELET COUNT 356 X10^3/uL (150.0-450.0); RED BLOOD COUNT 4.56 X10^6/uL (3.5-5.4); RED CELL DISTRIBUTION WIDTH 13.8 % (11.6-16.5); WHITE BLOOD COUNT 13.7 X10^3/uL (3.6-10.0)
[2019-04-27 05:40] LABS: ALANINE AMINOTRANSFERASE 56 Units/L (12-78); ALBUMIN 3.8 g/dL (3.4-5.0); ALKALINE PHOSPHATASE 112 Units/L (46-116); ASPARTATE AMINO TRANSFERASE 29 Units/L (15-37); BLOOD UREA NITROGEN 13 mg/dL (7-18); CALCIUM 9.2 mg/dL (8.5-10.1); CARBON DIOXIDE 29.3 mmol/L (21-32); CHLORIDE 99 mmol/L (98-107); COR NA(FOR HYPERGLY) 138 mmol/L (136-145); CREATININE 0.95 mg/dL (0.55-1.02); SODIUM 136 mmol/L (136-145); TOTAL PROTEIN 7.8 g/dL (6.4-8.2); eGFR NON BLACK RACES > 60 (>60)
[2019-04-27 06:12] LABS: BAND NEUTROPHILS % 2 % (0-10); PLATELET MORPHOLOGY COMMENT NORMAL (NORMAL)
[2019-04-27] MEDS: SOLU-Medrol 125 MG VIAL IVP SCH (06:12)
[2019-04-27] MEDS: CARAFATE PO SCH ×4 (06:54→21:14)
[2019-04-27] MEDS ORDERED: SOLU-Medrol 125 MG VIAL IVP SCH (07:00)
[2019-04-27] MEDS: NS 1000 ML 1,000 ML IV SCH (08:29)
[2019-04-27] MEDS: AMOXIL CAP 500 MG PO SCH ×2 (08:31→21:12)
[2019-04-27] MEDS: VALTREX PO SCH ×2 (08:31→21:15)
[2019-04-27] MEDS: BIAXIN TAB 500 MG PO SCH ×2 (08:31→21:14)
[2019-04-27] MEDS: PROTONIX INJ 40 MG VIAL IVP SCH ×2 (08:32→21:15)
[2019-04-27] MEDS: ZOFRAN INJ 4 MG VIAL IVP PRN ×2 (08:37→16:59)
[2019-04-27 08:43] LABS: AMYLASE 35 Units/L (25-115); LIPASE 71 Units/L (73-393)
[2019-04-27 10:38] LABS: BILIRUBIN,URINE NEGATIVE (NEGATIVE); BLOOD/HEMOGLOBIN,URINE NEGATIVE (NEGATIVE); GLUCOSE, URINE NEGATIVE (NEGATIVE); KETONES,URINE NEGATIVE (NEGATIVE); LEUKOCYTE ESTERASE ,URINE NEGATIVE (NEGATIVE); NITRITES,URINE NEGATIVE (NEGATIVE); PROTEIN,URINE NEGATIVE (NEGATIVE); UROBILINOGEN,URINE NORMAL (NORMAL)
[2019-04-27 10:55] LABS: APPEARANCE,URINE CLEAR (CLEAR); COLOR,URINE YELLOW (YELLOW)
--- NOTE | 2019-04-27 11:14 | RAD ---
HISTORYshre castillo Relevant Clinical InformationSTUDYKUBCOMPARISONCT scan of the abdomen and pelvis done 04/10/2019.FINDINGSThere is air and stool present involving the cecum and extending to the level of the mid descending colon. No evidence of bowel obstruction is seen. There are surgical clips from cholecystectomy. No opaque stone is identified. Osseous structures are intact.IMPRESSIONAir and stool present extending from the cecum to the level of the mid descending colon. No bowel obstruction is seen.Electronically signed by: PAUL LUCIANO (Apr 27, 2019 11:12:41)
[2019-04-27] MEDS: PREDNISONE TAB 20 MG PO SCH ×2 (14:00→16:59)
[2019-04-27] MEDS: ELAVIL PO SCH (21:14)
[2019-04-28 06:05] LABS: BASOPHILS # (AUTO) 0.1 X10^3/uL (0.0-0.1); BASOPHILS % (AUTO) 0.3 % (0.2-1.0); HEMOGLOBIN 13.2 g/dL (12.0-16.0); LYMPHOCYTES # (AUTO) 2.1 X10^3/uL (1.3-2.9); LYMPHOCYTES % (AUTO) 9.4 % (21.0-51.0); MEAN CORPUSCULAR HEMOGLOBIN 29.6 pg (27.0-34.0); MEAN CORPUSCULAR HGB CONC 32.9 g/dL (33.0-35.0); MEAN CORPUSCULAR VOLUME 89.9 fL (80.0-100.0); MEAN PLATELET VOLUME 8.2 fL (7.4-11.0); MONOCYTES % (AUTO) 4.5 % (0.0-13.0); NEUTROPHILS # (AUTO) 19.3 x10^3/uL (2.2-4.8); NEUTROPHILS % (AUTO) 85.8 % (42.0-75.0); PLATELET COUNT 325 X10^3/uL (150.0-450.0); RED BLOOD COUNT 4.45 X10^6/uL (3.5-5.4); RED CELL DISTRIBUTION WIDTH 14.4 % (11.6-16.5); WHITE BLOOD COUNT 22.5 X10^3/uL (3.6-10.0)
[2019-04-28] MEDS: CARAFATE PO SCH (06:15)
[2019-04-28 06:18] LABS: ALANINE AMINOTRANSFERASE 43 Units/L (12-78); ALBUMIN 3.1 g/dL (3.4-5.0); ALKALINE PHOSPHATASE 94 Units/L (46-116); ASPARTATE AMINO TRANSFERASE 10 Units/L (15-37); BLOOD UREA NITROGEN 16 mg/dL (7-18); CALCIUM 8.6 mg/dL (8.5-10.1); CARBON DIOXIDE 29.3 mmol/L (21-32); CHLORIDE 103 mmol/L (98-107); COR CA(FOR HYPOALB) 9.3 mg/dL (8.5-10.1); COR NA(FOR HYPERGLY) 140 mmol/L (136-145); CREATININE 0.83 mg/dL (0.55-1.02); SODIUM 139 mmol/L (136-145); TOTAL PROTEIN 6.6 g/dL (6.4-8.2); eGFR NON BLACK RACES > 60 (>60)
[2019-04-28 06:36] LABS: BAND NEUTROPHILS % 4 % (0-10)
[2019-04-28 06:39] LABS: PLATELET MORPHOLOGY COMMENT NORMAL (NORMAL)
[2019-04-28] MEDS: AMOXIL CAP 500 MG PO SCH (08:26)
[2019-04-28] MEDS: VALTREX PO SCH (08:27)
[2019-04-28] MEDS: PREDNISONE TAB 20 MG PO SCH (08:27)
[2019-04-28] MEDS: LIDODERM 5% PATCH TD SCH (08:27)
[2019-04-28] MEDS: BIAXIN TAB 500 MG PO SCH (08:27)
[2019-04-28] MEDS: PROTONIX INJ 40 MG VIAL IVP SCH (08:27)
[2019-04-28] MEDS: MORPHINE SULFATE INJ 2 MG INJ IVP PRN (08:37)
[2019-04-28 11:46] VITALS: BP 141/80
== END 2019-04-28 11:30 | disposition home or self-care (01) ==
LOC: ICU
PROVIDERS: ADMIT Internal Medicine; ATTEND Internal Medicine
DX: K21.9 Gastro-esophageal reflux disease without esophagitis; R52 Pain, unspecified; Z79.899 Other long term (current) drug therapy; R11.2 Nausea with vomiting, unspecified; G43.809 Other migraine, not intractable, without status migrainosus; I10 Essential (primary) hypertension; B02.8 Zoster with other complications; M13.89 Other specified arthritis, multiple sites; R79.82 Elevated C-reactive protein (CRP); B96.81 Helicobacter pylori [H. pylori] as the cause of diseases classified elsewhere; K29.00 Acute gastritis without bleeding
CPT/HCPCS: 36415; 74000; 74018; 80053; 80307; 81003; 82150; 83690; 83735; 85025; 85652; 86140; 96360; 96361; 96374; A4222; C9113; G0378; G0434; J1885; J2270; J2405; J2930; J7030; J7512